=== PATIENT | male | born 2000 | race Caucasian/White ===

== ENCOUNTER 2024-06-09 15:32 | Emergency (ER) | payer SELFPAY ==
[2024-06-09 15:34] VITALS: BP 136/96; PULSE 105; RESP 13; TEMP 36.7; O2SAT 97; BMI 20.5
--- NOTE | 2024-06-09 15:36 | PC.NURSE ---
Dr. Borges at [facility] for pt eval
--- NOTE | 2024-06-09 15:42 | XR_ITS ---
PROCEDURE INFORMATION: Exam: XR Right Femur Exam date and time: 06/09/2024 4:08 PM Age: 24 years old Clinical indication: Injury or trauma; Fall; Blunt trauma; Thigh or upper leg; Right; Additional info: Fall, crush injury TECHNIQUE: Imaging protocol: Radiologic exam of the right femur. Views: 2 views. COMPARISON: CR XR HIP RT 2-3V W/PELVIS 06/09/2024 4:08 PM FINDINGS: Bones/joints: The osseous structures appear intact with no evidence of acute fracture, dislocation, or malalignment. Joint spaces are preserved. No abnormal bone density or destructive lesions are noted. Soft tissues: Soft tissues appear unremarkable. IMPRESSION: At the time of imaging, there is no evidence for acute osseous abnormalities.
--- NOTE | 2024-06-09 15:42 | XR_ITS ---
PROCEDURE INFORMATION: Exam: XR Right Tibia and Fibula Exam date and time: 06/09/2024 4:08 PM Age: 24 years old Clinical indication: Injury or trauma; Fall; Blunt trauma; Lower leg; Right; Additional info: Fall, crush injury TECHNIQUE: Imaging protocol: Radiologic exam of the right tibia and fibula. Views: 2 views. COMPARISON: CR XR KNEE RT 3V 06/09/2024 4:08 PM FINDINGS: Bones/joints: The osseous structures appear intact with no evidence of acute fracture, dislocation, or malalignment. Joint spaces are preserved. No abnormal bone density or destructive lesions are noted. Soft tissues: Soft tissues appear unremarkable. IMPRESSION: At the time of imaging, there is no evidence for acute osseous abnormalities.
--- NOTE | 2024-06-09 15:42 | XR_ITS ---
PROCEDURE INFORMATION: Exam: XR Right Knee Exam date and time: 06/09/2024 4:08 PM Age: 24 years old Clinical indication: Injury or trauma; Fall; Blunt trauma; Knee; Right; Additional info: Fall, crush injury TECHNIQUE: Imaging protocol: Radiologic exam of the right knee. Views: 3 views. COMPARISON: CR XR KNEE RT 3V 06/09/2024 4:08 PM FINDINGS: Bones/joints: The osseous structures appear intact with no evidence of acute fracture, dislocation, or malalignment. Joint spaces are preserved. No abnormal bone density or destructive lesions are noted. Soft tissues: Soft tissues appear unremarkable. IMPRESSION: At the time of imaging, there is no evidence for acute osseous abnormalities.
--- NOTE | 2024-06-09 15:42 | XR_ITS ---
PROCEDURE INFORMATION: Exam: XR Right Hip Exam date and time: 06/09/2024 4:08 PM Age: 24 years old Clinical indication: Injury or trauma; Fall; Blunt trauma (contusions or hematomas); Right; Hip; Additional info: Fall, crush injury TECHNIQUE: Imaging protocol: Radiologic exam of the right hip. Views: 2 or 3 views hip with pelvis when performed. COMPARISON: CR XR HIP RT 2-3V W/PELVIS 06/09/2024 4:08 PM FINDINGS: Bones/joints: The osseous structures appear intact with no evidence of acute fracture, dislocation, or malalignment. Joint spaces are preserved. No abnormal bone density or destructive lesions are noted. Soft tissues: Soft tissues appear unremarkable. IMPRESSION: At the time of imaging, there is no evidence for acute osseous abnormalities.
--- NOTE | 2024-06-09 15:45 | [facility].EDGENADL ---
Discharge Plan Disposition Patient Disposition: Home, Self-Care Condition: Good Referrals Follow up/Referrals: Jose Guadalupe Salomon DO [Staff Physician] - See instructions Provider,MD Delma [Primary Care Provider] - See instructions Activity Restrictions/Add. Instructions Additional Instructions/Restrictions: You were evaluated in the emergency department today. Please follow-up closely with your primary care provider. If you continue to have significant pain, please follow-up closely with orthopedics. Use crutches as needed for walking. Return to the Emergency Department for new or worsening symptoms Clinical Impressions Clinical Impression: Contusion of leg, right Stand Alone Forms Stand Alone Forms: Work/School Release Instructions Patient Instructions: DI for Acute Pain -- Adult Print Language Print Language: Citizen Of The [place] Discharge ED Provider: Pilar Borges General Adult HPI General Chief complaint: PAIN Stated complaint: AO 06-09-24 bar sliding onto right leg Time Seen by Provider: 06/09/24 15:35 History of Present Illness HPI narrative: This patient is a 24-year-old male who denies significant past medical history presenting to the emergency department for evaluation with concern for right leg injury. History is obtained with the help of a publication specialist. Patient reports that he was working outside when he fell into a ditch, and large stakes fell on top of his right leg just above his right knee. He and his employer who sees with states it was not a large embankment that he fell down. He did not hit his head or lose consciousness. No pain elsewhere such as in his chest, neck, back, or abdomen. He has pain just above his right knee. No large open wounds. He states he is not been able to bear weight on it since this happened. No other concerns noted at this time. Related Data Allergies Allergy/AdvReac Type Severity Reaction Status Date / Time No Known Allergies Allergy Verified 06/09/24 15:45 [facility] Disclaimer: The information contained in this section may have been updated after the patient was seen, as this information can be updated by other users. Social History Smoking Status: Never smoker alcohol intake: never current occupational status: employed Travel in the last 8 weeks: None ROS Obtained: Yes All systems reviewed & no additional complaints except as documented Physical Exam General General appearance: alert and in no apparent distress Head Head exam: atraumatic and normocephalic Eye Eye exam: Present normal appearance, PERRL and EOMI ENT ENT exam: Present normal exam, normal oropharynx, mucous membranes moist and normal external ear exam Neck Neck exam: Present normal inspection, full ROM and trachea midline; Absent tenderness Chest Chest inspection: Present normal inspection and symmetric chest wall rise; Absent tenderness Respiratory Respiratory exam: Present normal lung sounds bilaterally; Absent respiratory distress, wheezes, stridor or accessory muscle use Cardiovascular Cardiovascular exam: Present regular rate and normal rhythm Abdominal Exam Abdominal exam: Present soft; Absent distention, tenderness or guarding Extremities Exam Extremities exam: Present full ROM, tenderness and normal capillary refill; Absent edema Expanded Lower Extremity Exam Right: Leg image: 1. linear erythema/contusion 2. bruising to lateral aspect of thigh 3. mild erythema Comment: No significant knee joint effusion. Neurovascularly intact distally with all compartments soft. Intact range of motion of the foot and ankle. No pain with passive stretch. Back Exam Back exam: Present normal inspection and full ROM; Absent tenderness Neurological Exam Neurological exam: Present alert, oriented X3, CN II-XII intact and normal gait; Absent motor sensory deficit Psychiatric Psychiatric exam: Present normal affect and normal mood Skin Skin exam: Present warm and dry Medical Decision Making Medical Records Medical records reviewed: Yes I reviewed the patient's medical records. Johnson Inquiry Pt receiving controlled substance: No Vital Signs: 06/09/24 15:34 06/09/24 16:00 06/09/24 16:30 Temperature 98.0 F Temperature Source Oral Pulse Rate 91 H 66 Pulse Rate [Left Radial] 105 H Respiratory Rate 13 Blood Pressure 126/86 137/93 H Blood Pressure [Right Arm] 136/96 H Blood Pressure Mean [Right Arm] 109 02 Sat by Pulse Oximetry 97 98 95 Oxygen Delivery Method Room Air Room Air 06/09/24 17:00 Temperature Temperature Source Pulse Rate 78 Pulse Rate [Left Radial] Respiratory Rate Blood Pressure 139/88 Blood Pressure [Right Arm] Blood Pressure Mean [Right Arm] 02 Sat by Pulse Oximetry 95 Oxygen Delivery Method Room Air Lab Data Lab results reviewed: Yes I reviewed the patient's lab results. Orders (Tests/Meds): ED MEDICATIONS Discontinued Medications Generic Name Dose Route Start Last Admin Trade Name Freq PRN Reason Stop Dose Admin Acetaminophen 1,000 mg 06/09/24 15:43 06/09/24 15:47 Acetaminophen 500mg Tab PO 06/09/24 15:44 1,000 mg ONCE ONE Administration Ibuprofen 800 mg 06/09/24 15:43 06/09/24 15:47 Ibuprofen 400 Mg Tablet PO 06/09/24 15:44 800 mg ONCE ONE Administration ORDERS Category Date Time Status Femur XR right 2 views [XR femur RT 2V] Stat Exams 06/09/24 15:42 Completed Hip XR right minimum 2 views [XR hip RT 2-3V w/pelvis] Exams 06/09/24 15:42 Completed Stat Knee XR right 3 views [XR knee RT 3V] Stat Exams 06/09/24 15:42 Completed Tibia/fibula XR right 2 views [XR tibia fibula RT 2V] Exams 06/09/24 15:42 Completed Stat Medical Decision Narrative: In summary, this patient is a 24-year-old male presenting to the Emergency Department for evaluation of right leg injury after falling in a ditch and having a large wooden stake land on top of it. Differential diagnoses considered include but are not limited to fracture, contusion, strain/brain, neurovascular injury, compartment syndrome, hematoma. Ruling out the most morbid conditions drove assessment. History is obtained with the help of a publication specialist. Workup included x-rays of the injured right lower extremity. Patient was given oral Tylenol and ibuprofen for symptomatic improvement of pain. I considered obtaining labs including CK, however patient has all compartment soft and is neurovascularly intact distally, so do not feel this is indicated as it would likely not change management specialist. I independently interpreted x-ray prior to the radiologist read and noted no acute fracture. Please see their read for final interpretation. On reassessment, the patient is resting comfortably and remains neurologically intact. He has no new development of any significant swelling or tight compartments. His exam is reassuring. No significant joint effusion. He has no appreciable ligamentous laxity. Given this, I do not feel the need to make him nonweightbearing or put him in a knee immobilizer. He is able to ambulate and put weight on the knee, though with some pain. Given this, he was provided with Skinny wrap and crutches to further support. At this time, I feel it is appropriate for discharge home with instructions for close follow-up with orthopedics if he continues to have pain as well as instructions for supportive management. Strict return precautions were given and he was discharged after all questions were answered. Discharge instructions were given with the help of a publication specialist Critical Care Critical Care Time Critical Care Time: No
[2024-06-09] MEDS: ACETAMINOPHEN 500MG TAB 1000 MG PO (15:47)
[2024-06-09] MEDS: IBUPROFEN 400 MG TABLET 800 MG PO (15:47)
[2024-06-09 16:00] VITALS: BP 126/86; PULSE 91; O2SAT 98
[2024-06-09 16:30] VITALS: BP 137/93; PULSE 66; O2SAT 95
[2024-06-09 17:00] VITALS: BP 139/88; PULSE 78; O2SAT 95
[2024-06-09 17:42] VITALS: BP 113/77; PULSE 81; RESP 13; TEMP 36.7
== END 2024-06-09 17:42 | disposition home or self-care (01) ==
PROVIDERS: Emergency Provider Emergency Medicine
DX: S70.11XA Contusion of right thigh, initial encounter (principal); W17.89XA Other fall from one level to another, initial encounter; Y99.0 Civilian activity done for income or pay; W20.8XXA Other cause of strike by thrown, projected or falling object, initial encounter
CPT/HCPCS: 73502; 73552; 73562; 73590; 99285